=== PATIENT | female | born 1930 | race Caucasian/White ===

== ENCOUNTER 2017-07-09 13:23 | Emergency (ER) | payer MEDICARE, OTHER ==
[~2017-07-09] VITALS: Ht 167.6 cm; Wt 81.7 kg
[2017-07-09] MEDS ORDERED: HYDROCHLOROTHIA25 M1 PO (13:56)
[2017-07-09] MEDS ORDERED: ASPIR 8181 M1 PO (13:56)
[2017-07-09] MEDS ORDERED: TOPROL XL25 MG PO (13:56)
[2017-07-09] MEDS ORDERED: EVISTA PO (14:03)
[2017-07-09] MEDS ORDERED: LOPRESSOR50 PO (14:03)
[2017-07-09] MEDS ORDERED: VITAMIN D10000 UNIT PO (14:06)
[2017-07-09] MEDS ORDERED: POTASSIUM GLUC500 MG PO (14:07)
[2017-07-09] MEDS ORDERED: CENTRUM SILVER1 EAC6 PO (14:08)
[2017-07-09] MEDS ORDERED: L-LYSINE500 MG PO (14:08)
[2017-07-09] MEDS ORDERED: COQ-10100 MG PO (14:08)
[2017-07-09] MEDS ORDERED: ODOR FREE GARL1 EAC1 PO (14:09)
[2017-07-09] MEDS ORDERED: CITRACAL-VIT D1 EACH PO (14:09)
[2017-07-09] MEDS ORDERED: STOOL SOFT-STI1 EACH PO (14:09)
[2017-07-09 15:38] VITALS: BP 159/72
== END 2017-07-09 15:39 | disposition home or self-care (01) ==
LOC: M.ERS 13:23
DX: S00.12XA Contusion of left eyelid and periocular area, initial encounter (principal); I10 Essential (primary) hypertension; E89.0 Postprocedural hypothyroidism; J44.9 Chronic obstructive pulmonary disease, unspecified; Z90.710 Acquired absence of both cervix and uterus; Z98.890 Other specified postprocedural states; W18.09XA Striking against other object with subsequent fall, initial encounter; Y93.89 Activity, other specified; Y92.098 Other place in other non-institutional residence as the place of occurrence of the external cause; Y99.8 Other external cause status

== ENCOUNTER 2017-10-03 21:06 | Inpatient (IN) | payer MEDICARE, OTHER ==
[~2017-10-03] VITALS: Ht 167.6 cm; Wt 85.5 kg
[~2017-10-03 21:06] MED LIST: ASPIR 8181 M1 PO; CENTRUM SILVER1 EAC6 PO; CITRACAL-VIT D1 EACH PO; COQ-10100 MG PO; EVISTA PO; HYDROCHLOROTHIA25 M1 PO; L-LYSINE500 MG PO; LOPRESSOR50 PO; ODOR FREE GARL1 EAC1 PO; POTASSIUM GLUC500 MG PO; STOOL SOFT-STI1 EACH PO; TOPROL XL25 MG PO; VITAMIN D10000 UNIT PO
[2017-10-03 21:41] VITALS: BP 198/80
[2017-10-03 22:04] LABS: ABSOLUTE EOSINOPHILS 0.3 thou/uL (0.0-0.7); ABSOLUTE LYMPHOCYTES 1.4 thou/uL (0.8-5.3); ABSOLUTE MONOCYTES 0.5 thou/uL (0.0-1.2); ABSOLUTE NEUTROPHILS 5.5 thou/uL (1.6-8.1); BASOPHILS 0.5 %; EOSINOPHILS 4.2 %; HEMATOCRIT 38.4 % (37.0-47.0); HEMOGLOBIN 12.9 gm/dL (12.0-15.0); LYMPHOCYTES 18.5 %; MCH 31.9 pg (26.0-34.0); MCHC 33.6 g/dL (28.0-37.0); MCV 95.1 fL (80.0-100.0); MPV 7.4 fl. (7.2-11.1); NUCLEATED RBCS 0 /100WBC; PLATELET COUNT* 207 thou/uL (150-400); POLYS 70.8 %; RBC 4.04 mil/uL (4.20-5.00); RDW-CV 15.1 % (10.5-14.5); WBC 7.7 thou/uL (4.0-11.0)
[2017-10-03 22:05] LABS: URINE BILIRUBIN NEGATIVE (Negative); URINE BLOOD NEGATIVE (Negative); URINE CLARITY CLOUDY; URINE COLOR YELLOW; URINE GLUCOSE-RANDOM NEGATIVE (Negative); URINE KETONES NEGATIVE (Negative); URINE LEUKOCYTES-REFLEX NEGATIVE (Negative); URINE NITRITE-REFLEX NEGATIVE (Negative); URINE PROTEIN TRACE (Negative); URINE UROBILINOGEN 0.2 E.U./dl (0.2-1.0)
[2017-10-03 22:12] LABS: CALCIUM 9.6 mg/dL (8.5-10.1); CREATININE 0.9 mg/dL (0.6-1.3); POTASSIUM 4.1 mmol/L (3.5-5.1)
[2017-10-03 22:16] LABS: ALBUMIN 3.5 g/dL (3.4-5.0); TOTAL BILIRUBIN 0.3 mg/dL (<0.1-1.0); TOTAL PROTEIN 7.1 g/dL (6.4-8.2)
[2017-10-04] MEDS ORDERED: HYDROCODONE-AP1 EAC6 PO (01:03)
[2017-10-04] MEDS ORDERED: GABAPENTIN 100100 MG PO (01:03)
[2017-10-04 02:32] VITALS: BP 144/57
[2017-10-04 02:55] VITALS: BP 156/48
[2017-10-04 06:04] LABS: HEMATOCRIT 37.9 % (37.0-47.0); HEMOGLOBIN 12.6 gm/dL (12.0-15.0); MCH 31.5 pg (26.0-34.0); MCHC 33.2 g/dL (28.0-37.0); MCV 94.8 fL (80.0-100.0); MPV 7.6 fl. (7.2-11.1); RDW-CV 14.8 % (10.5-14.5); WBC 9.2 thou/uL (4.0-11.0)
[2017-10-04 06:21] LABS: ALBUMIN 3.2 g/dL (3.4-5.0); CALCIUM 8.9 mg/dL (8.5-10.1); CREATININE 0.9 mg/dL (0.6-1.3); POTASSIUM 4.6 mmol/L (3.5-5.1); TOTAL BILIRUBIN 0.3 mg/dL (<0.1-1.0); TOTAL PROTEIN 6.2 g/dL (6.4-8.2)
[2017-10-04 08:00] VITALS: BP 134/49
[2017-10-04 12:00] VITALS: BP 147/38
[2017-10-04 16:00] VITALS: BP 106/51
[2017-10-04 20:00] VITALS: BP 149/49
[2017-10-05] VITALS: BP 100/50; BP 135/39
[2017-10-05 04:00] VITALS: BP 136/61
[2017-10-05 05:20] LABS: ABSOLUTE EOSINOPHILS 0.3 thou/uL (0.0-0.7); ABSOLUTE LYMPHOCYTES 1.3 thou/uL (0.8-5.3); ABSOLUTE MONOCYTES 0.5 thou/uL (0.0-1.2); ABSOLUTE NEUTROPHILS 4.6 thou/uL (1.6-8.1); BASOPHILS 0.4 %; EOSINOPHILS 4.2 %; HEMATOCRIT 36.1 % (37.0-47.0); LYMPHOCYTES 19.3 %; MCH 31.4 pg (26.0-34.0); MCHC 33.2 g/dL (28.0-37.0); MCV 94.8 fL (80.0-100.0); MONOCYTES 7.9 %; MPV 7.7 fl. (7.2-11.1); NUCLEATED RBCS 0 /100WBC; PLATELET COUNT* 176 thou/uL (150-400); POLYS 68.2 %; RBC 3.81 mil/uL (4.20-5.00); RDW-CV 14.9 % (10.5-14.5); WBC 6.7 thou/uL (4.0-11.0)
[2017-10-05 05:44] LABS: ALBUMIN 2.8 g/dL (3.4-5.0); CALCIUM 8.3 mg/dL (8.5-10.1); CREATININE 0.8 mg/dL (0.6-1.3); TOTAL BILIRUBIN 0.4 mg/dL (<0.1-1.0); TOTAL PROTEIN 5.4 g/dL (6.4-8.2)
[2017-10-05 07:45] VITALS: BP 126/34
[2017-10-05 11:35] VITALS: BP 152/71
[2017-10-05 16:00] VITALS: BP 165/75
[2017-10-05 20:00] VITALS: BP 138/56
[2017-10-06] VITALS: BP 146/50
[2017-10-06 04:00] VITALS: BP 135/48
[2017-10-06 04:53] LABS: HEMATOCRIT 32.8 % (37.0-47.0); MCH 31.7 pg (26.0-34.0); MCHC 33.5 g/dL (28.0-37.0); MCV 94.6 fL (80.0-100.0); MPV 7.9 fl. (7.2-11.1); RBC 3.47 mil/uL (4.20-5.00); RDW-CV 14.5 % (10.5-14.5); WBC 6.6 thou/uL (4.0-11.0)
[2017-10-06 05:16] LABS: ALBUMIN 2.5 g/dL (3.4-5.0); CALCIUM 8.1 mg/dL (8.5-10.1); CREATININE 0.8 mg/dL (0.6-1.3); TOTAL BILIRUBIN 0.3 mg/dL (<0.1-1.0); TOTAL PROTEIN 5.1 g/dL (6.4-8.2)
[2017-10-06 07:30] VITALS: BP 125/39
[2017-10-06 12:09] VITALS: BP 189/73
[2017-10-06 15:56] VITALS: BP 150/66
[2017-10-06 19:40] VITALS: BP 156/64
[2017-10-07 00:13] VITALS: BP 113/58
[2017-10-07 04:12] VITALS: BP 135/50
[2017-10-07 04:58] LABS: HEMATOCRIT 32.1 % (37.0-47.0); HEMOGLOBIN 10.6 gm/dL (12.0-15.0); MCH 31.9 pg (26.0-34.0); MCV 96.7 fL (80.0-100.0); MPV 8.1 fl. (7.2-11.1); RBC 3.32 mil/uL (4.20-5.00); RDW-CV 14.7 % (10.5-14.5)
[2017-10-07 05:18] LABS: ALBUMIN 2.4 g/dL (3.4-5.0); CALCIUM 8.3 mg/dL (8.5-10.1); CREATININE 0.8 mg/dL (0.6-1.3); DIRECT BILIRUBIN 0.1 mg/dL (<0.1-0.3); MAGNESIUM 1.6 mg/dL (1.8-2.4); POTASSIUM 3.6 mmol/L (3.5-5.1); TOTAL BILIRUBIN 0.3 mg/dL (<0.1-1.0)
[2017-10-07 08:00] VITALS: BP 132/51
[2017-10-07 12:20] VITALS: BP 116/42
[2017-10-07 16:24] VITALS: BP 144/129
[2017-10-07 20:00] VITALS: BP 146/56
[2017-10-08] VITALS (7 sets, daily range): BP systolic 102–150; BP diastolic 48–59
[2017-10-09] VITALS (8 sets, daily range): BP systolic 143–193; BP diastolic 50–59
[2017-10-09 04:53] LABS: HEMATOCRIT 31.2 % (37.0-47.0); HEMOGLOBIN 10.4 gm/dL (12.0-15.0); MCH 31.9 pg (26.0-34.0); MCHC 33.2 g/dL (28.0-37.0); MCV 95.9 fL (80.0-100.0); MPV 8.1 fl. (7.2-11.1); RBC 3.25 mil/uL (4.20-5.00); RDW-CV 14.6 % (10.5-14.5); WBC 7.3 thou/uL (4.0-11.0)
[2017-10-09 05:29] LABS: ALBUMIN 2.5 g/dL (3.4-5.0); CALCIUM 8.1 mg/dL (8.5-10.1); CREATININE 0.8 mg/dL (0.6-1.3); POTASSIUM 3.8 mmol/L (3.5-5.1); TOTAL BILIRUBIN 0.3 mg/dL (<0.1-1.0)
[2017-10-10 04:05] VITALS: BP 173/67
--- NOTE | 2017-10-10 07:43 | CON ---
[address] [address] CONSULTATION Name: OTTO ARREAGA Room: [address] IN .R.#: [id number] Admission: 10/04/17 Attend Phys: Ariana Schulte Discharge: Date of : 30 Report #: [id number] THIS REPORT FOR: //name// CC: Norma Yun DO Gómez Awad DICTATED BY: Chantale Kaplan [facility] DATE OF SERVICE: 10/05/2017 Please note at the time of this dictation, the patient was seen and physically examined by myself. REASON FOR CONSULTATION: Right lower to right upper quadrant pain that radiates into her back. HISTORY OF PRESENT ILLNESS: This pleasant 87-year-old female who states she was doing relatively well without any issues until yesterday morning. She was doing well. She ate dinner early on in the afternoon and then by 8:00 that evening, she states she had sudden onset of abdominal pain radiating in her right lower to right upper and into her back causing her to have some nausea and vomiting. She states with that she did not notice any bright red blood or any coffee ground emesis. Prior to that, her last bowel movement was on Monday and she states she just really had not eaten much because of feeling sick somewhat on Monday as well. She states her bowels normally move soft and formed and she does take stool softeners to help facilitate that. She has not noticed any change in her bowel movements. She did have an EGD and colonoscopy with Dr. Omalley 5 years ago and she states everything was normal what she was told. ALLERGIES: PENICILLIN. HOME MEDICATIONS: Include hydrochlorothiazide, Lopressor, vitamin D, potassium, CoQ10, L-lysine, Centrum, Citrucel, garlic and stool softeners. PAST MEDICAL HISTORY: Includes hypertension, back pain, COPD and neck vertebra with some bone spurs. 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 FAMILY HISTORY: Noncontributory. SOCIAL HISTORY: One and a half pack per day smoker. Alcohol on special occasion, but [place] [address] CONSULTATION Name: OTTO ARREAGA Room: [address]#: [id number] Admission: 10/04/17 Attend Phys: Ariana Schulte Discharge: Date of : 30 Report #: [id number] REVIEW OF SYSTEMS: Twelve-point review of systems is essentially negative except what is mentioned in the HPI. PHYSICAL EXAMINATION: VITAL SIGNS: Temperature 37.3, pulse 58, respirations 14, blood pressure 152/71. HEART: Regular rate and rhythm. LUNGS: Diminished, but clear. ABDOMEN: Soft, positive bowel sounds in all 4 quadrants with some very slight tenderness in the right lower quadrant. NEUROLOGIC: The patient just received some pain medicine, so it is very minimal. LABORATORY DATA: Hemoglobin is 12, hematocrit 36.1, white count is 6.7, platelets 176. Sodium 135, potassium 4, chloride 100, CO2 of 30, BUN is 10, creatinine 0.8, glucose is 111. GFR is 68, total bilirubin 0.4, alkaline phosphatase 63, ALT 15, AST is 16. Ultrasound showed numerous calculi in the gallbladder with no distention or wall thickening, negative ductal dilatation. CT shows hepatic steatosis, gallbladder normal and a large thoracic abdominal aortic aneurysm is noted. IMPRESSION: 1. Abdominal pain, right lower quadrant. 2. Nausea and vomiting secondary to the pain, improved with pain medication. 3. Constipation. PLAN: 1. MRCP results pending. 2. Obtain records, Dr. Omalley's office for her EGD colon back 5 years ago. 3. Full liquid diet. 4. In light of the fact that the patient's LFTs are not elevated and she is having more consistently right lower quadrant pain, may consider adhesions due to her previous surgeries that she has had, but will await records to make further recommendations at that time. Thank you for allowing us to participate in this patient's care. Please do not hesitate to call with any questions in regard to this consult. ADDENDUM REFERRING PHYSICIAN: Gómez Awad, REASON FOR CONSULTATION: Abdominal pain. I have seen and examined the patient and I am not exactly sure why she has all this abdominal pain. She does have evidence for multiple gallstones which [facility] [address] [place] [address] CONSULTATION Name: OTTO ARREAGA Room: [address] IN [facility]#: [id number] Admission: 10/04/17 Attend Phys: Ariana Schulte Discharge: Date of : 30 Report #: [id number] certainly could cause some right-sided abdominal pain and likely she will need to have a cholecystectomy. I do not see any inflammatory change noted within the cecum or ascending colon and her pain is definitely worse postprandially goes into her back compatible with biliary tract disease. I have also reviewed the patient's MRCP that was done earlier today, which revealed multiple gallstones without evidence for common bile duct obstruction or any other issues. I agree to have the patient being seen by Vascular Surgery, but it would anticipate the patient will need a cholecystectomy prior to discharge. <ELECTRONICALLY SIGNED> By: Jorge Luis Conner DO 10/10/17 0743 1538 1935Jorge Luis Conner DO /nt
[2017-10-10 08:00] VITALS: BP 188/78
[2017-10-10 11:30] VITALS: BP 140/59
[2017-10-10] MEDS ORDERED: CATAPRESS3 TRANSDERM (15:00)
[2017-10-10 15:51] VITALS: BP 163/96
[2017-10-10 20:00] VITALS: BP 141/69
[2017-10-10 23:56] VITALS: BP 156/64
[2017-10-11 04:00] VITALS: BP 159/61
[2017-10-11 08:00] VITALS: BP 151/58
[2017-10-11 12:00] VITALS: BP 154/56
[2017-10-11 15:56] VITALS: BP 154/56
[2017-10-11 16:00] VITALS: BP 181/60
[2017-10-11 19:45] VITALS: BP 203/75
[2017-10-12] VITALS: BP 148/50
[2017-10-12 04:00] VITALS: BP 115/40
[2017-10-12 07:30] VITALS: BP 141/46
[2017-10-12 09:51] LABS: HEMOGLOBIN 10.9 gm/dL (12.0-15.0); MCH 32.1 pg (26.0-34.0); MCHC 33.9 g/dL (28.0-37.0); MCV 94.6 fL (80.0-100.0); MPV 7.8 fl. (7.2-11.1); RBC 3.39 mil/uL (4.20-5.00); RDW-CV 14.9 % (10.5-14.5); WBC 6.5 thou/uL (4.0-11.0)
[2017-10-12 10:09] LABS: CALCIUM 8.8 mg/dL (8.5-10.1); CREATININE 0.9 mg/dL (0.6-1.3); MAGNESIUM 1.6 mg/dL (1.8-2.4); POTASSIUM 3.6 mmol/L (3.5-5.1)
[2017-10-12 12:00] VITALS: BP 152/57
[2017-10-12 16:00] VITALS: BP 163/55
[2017-10-12] MEDS ORDERED: PREDNISONE 10 M10 MG PO (16:50)
[2017-10-12] MEDS ORDERED: LEVAQUIN 500 M500 M2 PO (16:50)
[2017-10-12] MEDS ORDERED: PROTONIX40 M1 PO (16:52)
[2017-10-12] MEDS ORDERED: VENTOLIN HFA 1818 GM INH (16:53)
--- NOTE | 2017-10-15 15:17 | CON ---
[address] [address] CONSULTATION Name: OTTO ARREAGA Room: [address] IN .R.#: [id number] Admission: 10/04/17 Attend Phys: Ariana Schulte Discharge: 10/12/17 Date of : 30 Report #: [id number] THIS REPORT FOR: //name// CC: Norma Awad DATE OF SERVICE: 10/09/2017 REASON FOR CONSULTATION: Thoracoabdominal aortic aneurysm. HISTORY OF PRESENT ILLNESS: The patient is an 87-year-old female who presented to the Emergency Department with she was having the abdominal pain associated with nausea and vomiting. A CT scan was obtained, which showed gallstones as well as thoracic and abdominal aortic aneurysms and multiple renal cysts. An abdominal ultrasound was also obtained, which showed with multiple gallstones without cholecystitis. We have been asked to evaluate the patient and give our opinion regarding her thoracoabdominal aortic aneurysm and give our opinion regarding safety of proceeding with a laparoscopic cholecystectomy. The patient is aware of her aneurysms. She states she has been following with Dr. Marquis for years. She has not seen him for 2-3 years, but he sent her for an annual CAT scan. She is also followed as an outpatient with Dr. Barr with Cardiology. She reports she is due for her annual CAT scan, but over the past several months, her daughter fell ill and ultimately last month; therefore, she has not followed up with her scan. She continues to complain of right lower quadrant pain. She denies any current nausea or vomiting. She denies any epigastric abdominal pain, denies any current back pain. PAST MEDICAL HISTORY: 1. Hypertension. 2. Chronic obstructive pulmonary disease. 3. Appendicitis. 4. Bone spurs. 5. Abdominal aortic aneurysm. 6. Cataracts. PAST SURGICAL HISTORY: 1. Hysterectomy. 2. Partial thyroidectomy. 3. Surgery for bone spurs on her neck vertebrae. There is mention in her medical record of an abdominal aortic aneurysm repair with stent grafting in 2010, but the patient denies ever having her aneurysm surgically repaired. SOCIAL HISTORY: She is a one and a half pack per day smoker. She reports occasional alcohol use, denies any illicit drug use. FAMILY HISTORY: Reviewed, [place] [address] CONSULTATION Name: OTTO ARREAGA Room: [address]#: [id number] Admission: 10/04/17 Attend Phys: Ariana Schulte Discharge: 10/12/17 Date of : 30 Report #: [id number] ALLERGIES: PENICILLIN. HOME MEDICATIONS: 1. Hydrochlorothiazide. 2. Lopressor. 3. Vitamin D. 4. Potassium. 5. CoQ10. 6. Lysine. 7. Centrum. 8. Citrucel. 9. Garlic. 10. Stool softeners. REVIEW OF SYSTEMS: A 12-point review of systems has been reviewed and is negative except for the above-mentioned in the history of present illness. PHYSICAL EXAMINATION: VITAL SIGNS: Temperature 36.7, heart rate 58, respiratory rate 16, blood pressure 153/53. GENERAL: She is alert, oriented, in no acute distress. HEENT: Head is normocephalic, atraumatic. NECK: Supple, without jugular venous distention or carotid bruit. HEART: Bradycardia, no murmur noted. CHEST: Lungs are clear to auscultation bilaterally. ABDOMEN: Soft, mild right lower quadrant tenderness, positive bowel sounds. EXTREMITIES: She has palpable bilateral radial, femoral and right dorsalis pedis pulses, nonpalpable pulses on the left. Her feet are warm, pink, and neuromotor intact, trace edema in the left foot. NEUROLOGIC: She is alert and oriented with no focal neurologic deficits. LABORATORY DATA: Hemoglobin 10.4, hematocrit 31.2, white blood cell count 7.3, platelets 144. Sodium 141, potassium 3.8, chloride 103, CO2 34, BUN 6, creatinine 0.8, glucose is 102. ASSESSMENT AND PLAN: 1. Thoracoabdominal aortic aneurysm. Dr. Eric has reviewed her imaging. She is okay to undergo a laparoscopic cholecystectomy if indicated. She needs a CTA of the chest prior to discharge. No urgent surgical intervention is indicated for her thoracoabdominal aortic aneurysms. 2. Right lower quadrant abdominal pain with cholelithiasis, General Surgery is following. 3. Hypertension. 4. [place] [address] CONSULTATION Name: OTTO ARREAGA Room: [address]#: [id number] Admission: 10/04/17 Attend Phys: Ariana Schulte Discharge: 10/12/17 Date of : 30 Report #: [id number] I thank you for the opportunity to participate in the care of the patient. Please feel free to contact our office with any questions or concerns. <ELECTRONICALLY SIGNED> By: Rayray Braga DO 10/15/17 1517 1430 ANNAMARIE Means /mary kay
== END 2017-10-12 20:26 | disposition home or self-care (01) | DRG 177 ==
LOC: M.ERS 21:06 → M.2W 10-04 01:35 → M.TBA-ER 10-04 01:35 → M.2W 10-04 02:14
PROVIDERS: Emergency Medicine; Family Medicine; Internal Medicine; Internal Medicine Gastroenterology; Surgery; ADMIT Internal Medicine
DX: J15.6 Pneumonia due to other Gram-negative bacteria (principal); L89.93 Pressure ulcer of unspecified site, stage 3; K80.11 Calculus of gallbladder with chronic cholecystitis with obstruction; E44.0 Moderate protein-calorie malnutrition; I10 Essential (primary) hypertension; J44.9 Chronic obstructive pulmonary disease, unspecified; E89.0 Postprocedural hypothyroidism; H26.8 Other specified cataract; F17.210 Nicotine dependence, cigarettes, uncomplicated; G89.29 Other chronic pain; M54.5 Low back pain; K59.00 Constipation, unspecified; I71.6 Thoracoabdominal aortic aneurysm, without rupture; E66.9 Obesity, unspecified; N28.1 Cyst of kidney, acquired; E83.42 Hypomagnesemia; R09.02 Hypoxemia; Z90.710 Acquired absence of both cervix and uterus; Z79.899 Other long term (current) drug therapy; Z79.82 Long term (current) use of aspirin; Z88.0 Allergy status to penicillin; Z90.49 Acquired absence of other specified parts of digestive tract; Z71.6 Tobacco abuse counseling; Z68.30 Body mass index [BMI] 30.0-30.9, adult